=== PATIENT | female | born 1965 | race Caucasian/White ===

== ENCOUNTER 2021-02-27 16:16 | Emergency (ER) | payer OTHER ==
--- NOTE | 2021-02-27 17:42 | EDM.PDOC ---
ED HPI GENERAL MEDICAL PROBLEM - General Chief Complaint: Abdominal Pain Stated Complaint: STOMACH PAIN Time Seen by Provider: 02/27/21 17:09 Source of Information: Reports: Patient, Family, RN Notes Reviewed History Limitations: Reports: No Limitations - History of Present Illness INITIAL COMMENTS - FREE TEXT/NARRATIVE: 56-year-old female presents emergency department day complaint abdominal pain, she was in clinic earlier complaint of migraine was treated with Zofran and Toradol does have a history of stage IV breast cancer currently undergoing treatment after treatment for migraine had went home headache had resolved but then she developed abdominal pain epigastric she became flushed uncomfortable nauseated decided to report to the emergency department by this time all of her symptoms have resolved. She stated the pain was very high in her abdomen almost into her chest. Does not describe any chest pain chest discomfort no shortness of breath no diaphoresis but at this time she is asymptomatic Upper Abdomen Pain Score (Numeric/FACES): 2 - Related Data Allergies Allergy/AdvReac Type Severity Reaction Status Date / Time No Known Allergies Allergy Verified 02/27/21 16:39 Home Meds: Home Meds NK [No Known Home Meds] 01/20/16 [History] Past Medical History HEENT History: Reports: None Musculoskeletal History: Reports: Other (See Below) Other Musculoskeletal History: right elbow/arm pain Endocrine/Metabolic History: Reports: Vitamin D Deficiency Oncologic (Cancer) History: Reports: Breast - Past Surgical History HEENT Surgical History: Reports: Other (See Below) Other HEENT Surgeries/Procedures: lump removed rightside of neck GI Surgical History: Reports: Cholecystectomy Female Surgical History: Reports: Hysterectomy, Mastectomy Endocrine Surgical History: Reports: None Oncologic Surgical History: Reports: Mastectomy, Other (See Below) Other Oncologic Surgeries/Procedures: bilateral mastectomy Social & Family History - Tobacco Use Tobacco Use Status *Q: Never Tobacco User - Caffeine Use Caffeine Use: Reports: None - Recreational Drug Use Recreational Drug Use: No ED ROS GENERAL - Review of Systems Review Of Systems: See Below Constitutional: Reports: No Symptoms HEENT: Reports: No Symptoms Respiratory: Reports: Shortness of Breath Cardiovascular: Reports: Chest Pain GI/Abdominal: Reports: Abdominal Pain : Reports: No Symptoms ED EXAM, GI/ABD - Physical Exam Exam: See Below Exam Limited By: No Limitations General Appearance: Alert, WD/WN, No Apparent Distress Respiratory/Chest: No Respiratory Distress, Lungs Clear, Normal Breath Sounds, No Accessory Muscle Use, Chest Non-Tender Cardiovascular: Regular Rate, Rhythm, No Murmur GI/Abdominal Exam: Soft, Non-Tender Course - Vital Signs Last Recorded V/S: Last Vital Signs Temp 98.1 F 02/27/21 16:36 Pulse 77 02/27/21 16:36 Resp 16 02/27/21 16:36 BP 132/83 02/27/21 16:36 Pulse Ox 97 02/27/21 16:36 Departure - Departure Time of Disposition: 17:41 Disposition: Home, Self-Care 01 Condition: Fair Clinical Impression: Abdominal pain Qualifiers: Abdominal location: unspecified location Qualified Code(s): R10.9 - Unspecified abdominal pain - Discharge Information Instructions: Abdominal Pain, Adult, [id number] Referrals: Denys Minor MD [Primary Care Provider] - Additional Instructions: Continue with your regular medications, keep your follow-up appointment with oncology, please return to the emergency department with worsening of symptoms call with any concerns Sepsis Event Note (ED) - Evaluation Sepsis Screening Result: No Definite Risk - Focused Exam Vital Signs: Vital Signs Temp Pulse Resp BP Pulse Ox 02/27/21 16:36 98.1 F 77 16 132/83 97 - Assessment/Plan Plan: Assessment Acuity = acute Site and laterality = abdominal/chest discomfort now resolved Etiology = unknown Manifestations = none Location of injury = Home Lab values = none Plan I did offer her further evaluation including blood work and image studies however she declined we did do 2 laps around the emergency department with pulse oximetry she remains between 92 and 96 bpm oxygen saturation also remained around 95 with no fluctuation. She elected not to have anything done at this time is can return home but will return to the emergency department with any worsening symptoms This note was dictated using [employer] voice recognition software please call with any questions on syntax or grammar.
== END 2021-02-27 18:02 | disposition home or self-care (01) ==
LOC: JP.ED 16:16
DX: R10.13 Epigastric pain (principal)
CPT/HCPCS: 99283

== ENCOUNTER 2022-04-19 10:02 | Emergency (ER) | payer OTHER | END 2022-04-19 13:03 | disposition home or self-care (01) | LOC: JP.ED 10:02 | DX: S20.211A Contusion of right front wall of thorax, initial encounter (principal); Z79.899 Other long term (current) drug therapy; Z90.49 Acquired absence of other specified parts of digestive tract; Z90.710 Acquired absence of both cervix and uterus; W01.198A Fall on same level from slipping, tripping and stumbling with subsequent striking against other object, initial encounter | CPT/HCPCS: 71250; 99285 ==

== ENCOUNTER 2022-07-28 08:02 | Day surgery (SDC) | payer OTHER ==
[2022-07-28] MEDS ORDERED: Lactated Ringers 1,000 ML IV SCH (08:30)
[2022-07-28] MEDS ORDERED: Midazolam 1 MG/ML 2 ML SDV ONE (09:21)
[2022-07-28] MEDS ORDERED: fentaNYL 50 MCG/ML SDV ONE (09:21)
[2022-07-28] MEDS ORDERED: Propofol 200 MG/20 ML SDV ONE (09:21)
[2022-07-28] MEDS ORDERED: Metoclopramide 10 MG/2 ML SDV IVPUSH ONE (09:57)
== END 2022-07-28 11:40 | disposition home or self-care (01) ==
LOC: JP.SDS 08:02
PROVIDERS: ATTEND Family Medicine
DX: Z12.11 Encounter for screening for malignant neoplasm of colon (principal); F41.9 Anxiety disorder, unspecified; E06.3 Autoimmune thyroiditis; Z86.010 Personal history of colon polyps; Z79.899 Other long term (current) drug therapy
CPT/HCPCS: 45378; J2250; J2704; J2765; J3010; J7120

== ENCOUNTER 2023-09-29 07:36 | Day surgery (SDC) | payer BC, OTHER ==
[2023-09-29] MEDS ORDERED: Propofol 200 MG/20 ML SDV ONE (07:42)
[2023-09-29] MEDS ORDERED: fentaNYL 100 MCG/2 ML SDV ONE (07:43)
[2023-09-29] MEDS ORDERED: Midazolam 1 MG/ML 2 ML SDV ONE (07:43)
[2023-09-29] MEDS: Lactated Ringers 1,000 ML IV SCH (08:13)
== END 2023-09-29 11:40 | disposition home or self-care (01) ==
LOC: JP.SDS 07:36
PROVIDERS: ATTEND Student in an Organized Health Care Education/Training Program
DX: R10.13 Epigastric pain (principal); K29.70 Gastritis, unspecified, without bleeding; K22.81 Esophageal polyp
CPT/HCPCS: 43239; J2250; J2704; J3010; J7120